=== PATIENT | male | born 2000 | race Asian ===

== ENCOUNTER 2023-05-04 13:54 | Emergency (ER) | payer OTHER, SELFPAY ==
[2023-05-04 14:03] VITALS: BP 102/66; PULSE 88; RESP 20; TEMP 36.6; O2SAT 100; BMI 19.7
--- NOTE | 2023-05-04 14:20 | ED.GENADULT ---
HPI - General Adult General Time Seen by Provider: 14:20 <Hieu Esquivel MD - Last Filed: 06/20/23 15:16> Date Seen: 05/04/23 <Hieu Esquivel MD - Last Filed: 06/20/23 15:16> Chief complaint: Psychiatric Problem/Disorder <Hieu Esquivel MD - Last Filed: 06/20/23 15:16> Stated complaint: Mental health <Hieu Esquivel MD - Last Filed: 06/20/23 15:16> Time Seen by Provider: 05/04/23 13:56 <Hieu Esquivel MD - Last Filed: 06/20/23 15:16> Source: patient <Hieu Esquivel MD - Last Filed: 06/20/23 15:16> Mode of arrival: ambulatory <Hieu Esquivel MD - Last Filed: 06/20/23 15:16> Limitations: no limitations <Hieu Esquivel MD - Last Filed: 06/20/23 15:16> History of Present Illness HPI narrative: Arley is a 23 year old male to female transgender patient with a past medical history of depression currently on citrulline presents emergency department via private car and self with behavioral issue. 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 Patient did some cutting this morning, no intention to end her life. When she was 18, she went to the hospital for increased depression and cutting behavior, she states she never was inpatient, they started her on citrulline at that time. She was off this medication for some time, recently started since her depression has worsened over the last 3-4 months. She ended up taking her final exam this afternoon, and did well. She has no issues at school. She occasionally uses alcohol, no illicit drug use, denies any auditory visual hallucinations. <Hieu Esquivel MD - Last Filed: 06/20/23 15:16> Related Data Home medications: Home Medications Medication Instructions Recorded Confirmed lorazepam 1 mg tablet (Ativan) 1 mg PO QHS 05/04/23 05/04/23 sertraline 50 mg tablet 50 mg PO DAILY 05/04/23 05/04/23 <Hieu Esquivel MD - Last Filed: 06/20/23 15:16> Allergies/adverse reactions: Allergies Allergy/AdvReac Type Severity Reaction Status Date / Time No Known Drug Allergies Allergy Verified 05/04/23 14:01 <Hieu Esquivel MD - Last Filed: 06/20/23 15:16> Review of Systems Status of ROS: Reports: 10 or more systems reviewed and unremarkable except as noted in History and below <Hieu Esquivel MD - Last Filed: 06/20/23 15:16> PFSH PFS Social History: Social History Smoking Status: Unknown if ever smoked <Hieu Esquivel MD - Last Filed: 06/20/23 15:16> Exam Narrative: Exam Narrative: General: No obvious distress sitting comfortably HEENT: Tympanic membranes within normal limits, oropharynx clear moist Pupils equal round reactive to light, extraocular muscles intact Neck: Supple, full range of motion Lungs; clear to auscultation bilaterally Heart; normal sinus rhythm S1-S2 Abdomen; soft nontender, bowel sounds present Muscle skeletal: +5 strength upper lower extremities Neuro; alert awake and oriented x3 Psych: Mood and affect normal <Hieu Esquivel MD - Last Filed: 06/20/23 15:16> Const: Vital Signs, click to edit/add: Vital Signs - 24 hr 05/04/23 14:03 Temperature 97.9 F Pulse Rate [Pulse Oximeter] 88 Respiratory Rate 20 Blood Pressure [Ri ght Upper Arm] 102/66 Pulse Oximetry 100 Oxygen Delivery Me thod Room Air <Hieu Esquivel MD - Last Filed: 06/20/23 15:16> Vital Signs, click to edit/add: Vital Signs - 24 hr 05/04/23 14:03 Temperature 97.9 F Pulse Rate [Pulse Oximeter] 88 Respiratory Rate 20 Blood Pressure [Ri ght Upper Arm] 102/66 Pulse Oximetry 100 Oxygen Delivery Me thod Room Air <Franky Hensley MD - Last Filed: 05/04/23 16:28> Course Course ED Course: 2:30 PM: AIDET performed. vitals are normal. Workup will include TeleHealth consult, will obtain basic labs including CBC, CMP and TSH, bacitracin applied to wound area on her left wrist, patient is up-to-date on her tetanus status, differential diagnosis include but not limited to depression with suicide plan, chemical intoxication with suicidal ideation and risk of self-harm, schizoaffective disorder with risk of self-harm, bipolar disorder with severe depressive phase and risk of self-harm, personality disorder with risk of self-harm depression due to hypothyroidism, metabolic derangement or OPTICAL ASSISTANT abnormality <Hieu Esquivel MD - Last Filed: 06/20/23 15:16> Reevaluation(s) Time of Reevaluation #1: 15:50 <Hieu Esquivel MD - Last Filed: 06/20/23 15:16> Reevaluation #1: Patient to be evaluated by [facility] [place], labs pending, due to shift change transfer of care was given to Dr. Ayden PALACIOS, please see his note for final disposition and plan. <Hieu Esquivel MD - Last Filed: 06/20/23 15:16> Vital Signs Vital signs: Initial Vital Signs Temperature 97.9 F 05/04/23 14:03 Temperature Source Temporal Artery Scan 05/04/23 14:03 Pulse Rate 88 05/04/23 14:03 Pulse Rhythm Regular 05/04/23 14:03 Respiratory Rate 20 05/04/23 14:03 Blood Pressure 102/66 05/04/23 14:03 Blood Pressure Mean 78 05/04/23 14:03 Blood Pressure Position Supine 05/04/23 14:03 Pulse Oximetry 100 05/04/23 14:03 Oxygen Delivery Method Room Air 05/04/23 14:03 Vital Signs Temperature 97.9 F 05/04/23 14:03 Pulse Rate 88 05/04/23 14:03 Respiratory Rate 20 05/04/23 14:03 Blood Pressure 102/66 05/04/23 14:03 Pulse Oximetry 100 05/04/23 14:03 Oxygen Delivery Method Room Air 05/04/23 14:03 Temperature 97.9 F 05/04/23 16:50 Pulse Rate 88 05/04/23 16:50 Respiratory Rate 20 05/04/23 16:50 Blood Pressure 102/66 05/04/23 16:50 Pulse Oximetry 100 05/04/23 14:03 Oxygen Delivery Method Room Air 05/04/23 14:03 <Hieu Esquivel MD - Last Filed: 06/20/23 15:16> Initial Vital Signs Temperature 97.9 F 05/04/23 14:03 Temperature Source Temporal Artery Scan 05/04/23 14:03 Pulse Rate 88 05/04/23 14:03 Pulse Rhythm Regular 05/04/23 14:03 Respiratory Rate 20 05/04/23 14:03 Blood Pressure 102/66 05/04/23 14:03 Blood Pressure Mean 78 05/04/23 14:03 Blood Pressure Position Supine 05/04/23 14:03 Pulse Oximetry 100 05/04/23 14:03 Oxygen Delivery Method Room Air 05/04/23 14:03 Vital Signs Temperature 97.9 F 05/04/23 14:03 Pulse Rate 88 05/04/23 14:03 Respiratory Rate 20 05/04/23 14:03 Blood Pressure 102/66 05/04/23 14:03 Pulse Oximetry 100 05/04/23 14:03 Oxygen Delivery Method Room Air 05/04/23 14:03 Temperature 97.9 F 05/04/23 16:50 Pulse Rate 88 05/04/23 16:50 Respiratory Rate 20 05/04/23 16:50 Blood Pressure 102/66 05/04/23 16:50 Pulse Oximetry 100 05/04/23 14:03 Oxygen Delivery Method Room Air 05/04/23 14:03 <Franky Hensley MD - Last Filed: 05/04/23 16:28> Medical Decision Making MDM Narrative Medical decision making narrative: This patient comes in for psychiatric evaluation and care for this patient was assigned to me after the ending of Dr. Esquivel's shift. I did speak with the [facility] mental mathematics technician named Ky who did meet with the patient. He states that she is endorsing safety and no intent to harm herself or others. The patient is okay to return home to her dormitory. Arrangements are made for follow-up appointment tomorrow. <Franky Hensley MD - Last Filed: 05/04/23 16:28> Lab Data Labs: Lab Results 05/04/23 Range/Units 14:55 WBC 6.26 (4.50-11.00) K/uL RBC 4.33 (4.30-5.90) m/uL Hgb 13.9 (13.5-17.5) gm/dL Hct 41.5 (37.0-53.0) % MCV 96 (80-100) fL MCH 32 (26-34) pg MCHC 34 (32-36) gm/dL RDW Coeff of Michelle 11.8 (11.5-15.5) % Plt Count 242 (140-440) K/uL Neut % (Auto) 57.8 (42.0-72.0) % Lymph % (Auto) 31.8 (20-44) % Wilbarger % (Auto) 6.1 (0.0-11.0) % Eos % (Auto) 3.8 (0.0-7.0) % Baso % (Auto) 0.5 (0.0-3.0) % Neut # (Auto) 3.62 (1.7-7.0) K/uL Lymph # (Auto) 1.99 (0.90-2.90) K/uL Wilbarger # (Auto) 0.40 (0.00-0.90) K/UL Eos # (Auto) 0.24 (0.00-0.50) K/uL Baso # (Auto) 0.03 (0.00-0.30) K/uL Abs Immat Gran (auto) 0.00 (0.00-0.30) K/uL Imm/Tot Granulo (auto) 0.0 % Sodium 140 (135-149) mmol/L Potassium 3.9 (3.6-5.1) mmol/L Chloride 104 (96-114) mmol/L Carbon Dioxide 25 (20-32) mmol/L Anion Gap 11 (7-15) mEq/L BUN 13 (5-24) mg/dL Creatinine 0.7 (0.5-1.5) mg/dL Estimated Creat Clear 148.75 Estimated GFR 134 ml/min Glucose 107 (60-115) mg/dL Calcium 9.3 (8.4-10.6) mg/dL Total Bilirubin 0.6 (0.1-1.5) mg/dL AST 23 (12-35) U/L ALT 10 (4-50) U/L Alkaline Phosphatase 65 (40-150) U/L Total Protein 8.0 (6.0-8.3) g/dL Albumin 4.9 (3.3-5.0) g/dL TSH 2.380 (0.270-4.20) uIU/mL <Hieu Esquivel MD - Last Filed: 06/20/23 15:16> Lab Results 05/04/23 Range/Units 14:55 WBC 6.26 (4.50-11.00) K/uL RBC 4.33 (4.30-5.90) m/uL Hgb 13.9 (13.5-17.5) gm/dL Hct 41.5 (37.0-53.0) % MCV 96 (80-100) fL MCH 32 (26-34) pg MCHC 34 (32-36) gm/dL RDW Coeff of Michelle 11.8 (11.5-15.5) % Plt Count 242 (140-440) K/uL Neut % (Auto) 57.8 (42.0-72.0) % Lymph % (Auto) 31.8 (20-44) % [place] % (Auto) 6.1 (0.0-11.0) % Eos % (Auto) 3.8 (0.0-7.0) % Baso % (Auto) 0.5 (0.0-3.0) % Neut # (Auto) 3.62 (1.7-7.0) K/uL Lymph # (Auto) 1.99 (0.90-2.90) K/uL [place]ger # (Auto) 0.40 (0.00-0.90) K/UL Eos # (Auto) 0.24 (0.00-0.50) K/uL Baso # (Auto) 0.03 (0.00-0.30) K/uL Abs Immat Gran (auto) 0.00 (0.00-0.30) K/uL Imm/Tot Granulo (auto) 0.0 % Sodium 140 (135-149) mmol/L Potassium 3.9 (3.6-5.1) mmol/L Chloride 104 (96-114) mmol/L Carbon Dioxide 25 (20-32) mmol/L Anion Gap 11 (7-15) mEq/L BUN 13 (5-24) mg/dL Creatinine 0.7 (0.5-1.5) mg/dL Estimated Creat Clear 148.75 Estimated GFR 134 ml/min Glucose 107 (60-115) mg/dL Calcium 9.3 (8.4-10.6) mg/dL Total Bilirubin 0.6 (0.1-1.5) mg/dL AST 23 (12-35) U/L ALT 10 (4-50) U/L Alkaline Phosphatase 65 (40-150) U/L Total Protein 8.0 (6.0-8.3) g/dL Albumin 4.9 (3.3-5.0) g/dL TSH 2.380 (0.270-4.20) uIU/mL <Franky Hensley MD - Last Filed: 05/04/23 16:28> Discharge Plan Discharge Clinical Impression: Depression, Deliberate self-cutting <Hieu Esquivel MD - Last Filed: 06/20/23 15:16> Patient Disposition: Home, Self-Care <Hieu Esquivel MD - Last Filed: 06/20/23 15:16> Condition: Improved <Hieu Esquivel MD - Last Filed: 06/20/23 15:16> Additional Instructions: Follow-up with scheduled appointments. Otherwise continue current plans. Return if worsening. <Hieu Esquivel MD - Last Filed: 06/20/23 15:16> Prescriptions: No Action sertraline 50 mg tablet 50 mg PO DAILY lorazepam [Ativan] 1 mg tablet 1 mg PO QHS <Hieu Esquivel MD - Last Filed: 06/20/23 15:16> Follow Up/Referrals: Provider,Not a Local [Primary Care Provider] - <Hieu Esquivel MD - Last Filed: 06/20/23 15:16> Stand Alone Forms: [facility] Info Inst[facility] <Hieu Esquivel MD - Last Filed: 06/20/23 15:16>
[2023-05-04 15:03] LABS: Basophils Absolute Auto 0.03 K/uL (0.00-0.30); Basophils Percent Auto 0.5 % (0.0-3.0); Eosinophils Absolute Auto 0.24 K/uL (0.00-0.50); Eosinophils Percent Auto 3.8 % (0.0-7.0); Hematocrit 41.5 % (37.0-53.0); Hemoglobin* 13.9 gm/dL (13.5-17.5); Lymphocytes Absolute Auto 1.99 K/uL (0.90-2.90); Lymphocytes Percent Auto 31.8 % (20-44); Mean Corpuscular HGB Conc 34 gm/dL (32-36); Mean Corpuscular Hemoglobin 32 pg (26-34); Mean Corpuscular Volume 96 fL (80-100); Monocytes Percent Auto 6.1 % (0.0-11.0); Neutrophils Absolute Auto 3.62 K/uL (1.7-7.0); Neutrophils Percent Auto 57.8 % (42.0-72.0); Platelet Count* 242 K/uL (140-440); RDW Coefficient of Variation % 11.8 % (11.5-15.5); Red Blood Count 4.33 m/uL (4.30-5.90); White Blood Count* 6.26 K/uL (4.50-11.00)
[2023-05-04 15:15] LABS: Slide Review Reflex No
[2023-05-04 15:17] LABS: Albumin* 4.9 g/dL (3.3-5.0); Chloride* 104 mmol/L (96-114); Sodium* 140 mmol/L (135-149)
[2023-05-04 15:18] LABS: Potassium* 3.9 mmol/L (3.6-5.1)
[2023-05-04 15:20] LABS: Alanine Aminotransferase* 10 U/L (4-50); Alkaline Phosphatase* 65 U/L (40-150); Anion Gap 11 mEq/L (7-15); Aspartate Amino Transferase* 23 U/L (12-35); Bilirubin Total* 0.6 mg/dL (0.1-1.5); Blood Urea Nitrogen* 13 mg/dL (5-24); Carbon Dioxide* 25 mmol/L (20-32); Creatinine* 0.7 mg/dL (0.5-1.5); Est. Creatinine Clearance* 148.75; Estimated Glomerular Filt Rate 134 ml/min; Glucose* 107 mg/dL (60-115)
[2023-05-04 15:21] LABS: Calcium* 9.3 mg/dL (8.4-10.6)
[2023-05-04 16:50] VITALS: BP 102/66; PULSE 88; RESP 20; TEMP 36.6
== END 2023-05-04 16:51 | disposition home or self-care (01) ==
PROVIDERS: Emergency Provider Student in an Organized Health Care Education/Training Program
DX: F32.A Depression, unspecified (principal); R45.88 Nonsuicidal self-harm
CPT/HCPCS: 36415; 80053; 84443; 85025; 95992; 99283